=== PATIENT | female | born 1975 | race African-American/Black ===

== ENCOUNTER 2021-04-09 13:28 | Emergency (ER) | payer MEDICAID ==
[~2021-04-09] VITALS: Ht 177.8 cm; Wt 82.0 kg
[2021-04-09] MEDS ORDERED: AMLODIPINE 10MG TABLET PO ONE (14:30)
[2021-04-09] MEDS ORDERED: LORAZEPAM 1MG TABLET PO ONE (14:30)
[2021-04-09 15:34] LABS: CLARITY URINE CLEAR (CLEAR); COLOR URINE YELLOW (YELLOW); KETONES URINE NEGATIVE (NEGATIVE); LEUKOCYTE ESTERASE URINE NEGATIVE (NEGATIVE); NITRITE URINE NEGATIVE (NEGATIVE); OCCULT BLOOD URINE NEGATIVE (NEGATIVE); PROTEIN URINE NEGATIVE (NEGATIVE); SPECIFIC GRAVITY URINE 1.024 (1.005-1.030)
[2021-04-09 15:58] LABS: *BARBITURATES SCREEN URINE NEGATIVE (NEGATIVE); CANNABINOID URINE SCREEN NEGATIVE (NEGATIVE); METHADONE URINE SCREEN NEGATIVE (NEGATIVE); OPIATES URINE SCREEN NEGATIVE (NEGATIVE); PHENCYCLIDINE URINE SCREEN NEGATIVE (NEGATIVE)
[2021-04-09 15:59] LABS: *AMPHETAMINES SCREEN URINE NEGATIVE (NEGATIVE); *BENZODIAZEPINES SCREEN URINE NEGATIVE (NEGATIVE); *COCAINE SCREEN URINE NEGATIVE (NEGATIVE)
[2021-04-09] MEDS ORDERED: QUET150T2 MT (16:09)
[2021-04-09] MEDS ORDERED: AMLO10TA80 MT (16:09)
[2021-04-09] MEDS ORDERED: CLON0.5T23 MT (16:09)
[2021-04-09 16:30] VITALS: BP 135/62
== END 2021-04-09 16:47 | disposition home or self-care (01) ==
LOC: ER 13:46
DX: F41.9 Anxiety disorder, unspecified (principal); I10 Essential (primary) hypertension; F32.9 Major depressive disorder, single episode, unspecified
CPT/HCPCS: 80305; 81003; 99283; Z7610